=== PATIENT | male | born 1985 | race Caucasian/White ===

== ENCOUNTER 2022-04-08 19:03 | Emergency (ER) | payer SELFPAY | END 2022-04-08 21:10 | disposition home or self-care (01) | LOC: JD.ED 19:03 | DX: R07.89 Other chest pain (principal); K08.89 Other specified disorders of teeth and supporting structures; E78.00 Pure hypercholesterolemia, unspecified; I10 Essential (primary) hypertension; F17.210 Nicotine dependence, cigarettes, uncomplicated; E66.9 Obesity, unspecified; Z68.43 Body mass index [BMI] 50.0-59.9, adult; Z88.0 Allergy status to penicillin | CPT/HCPCS: 36415; 71045; 71045-26; 84484; 85025; 93005; 93010; 99284; 99285-25 ==

== ENCOUNTER 2022-12-27 21:31 | Emergency (ER) | payer OTHER ==
[2022-12-27] MEDS ORDERED: Levofloxacin 750 MG Tab PO ONE (22:10)
[2022-12-27] MEDS ORDERED: Acetaminophen/oxyCODONE 325-5 MG Tab PO ONE (22:11)
[2022-12-27] MEDS ORDERED: Dexamethasone 6 MG TABLET PO ONE (22:11)
[2022-12-27] MEDS ORDERED: Ibuprofen 800 MG Tab PO ONE (22:12)
== END 2022-12-27 22:42 | disposition home or self-care (01) ==
LOC: JD.ED 21:31
DX: N45.1 Epididymitis (principal); I10 Essential (primary) hypertension; E11.9 Type 2 diabetes mellitus without complications; E66.9 Obesity, unspecified; Z68.43 Body mass index [BMI] 50.0-59.9, adult; Z72.0 Tobacco use; Z88.0 Allergy status to penicillin; Z79.899 Other long term (current) drug therapy; Z79.84 Long term (current) use of oral hypoglycemic drugs
CPT/HCPCS: 99283; A9270; J8540

== ENCOUNTER 2024-09-21 21:03 | Observation (INO) | payer OTHER ==
[2024-09-21] MEDS ORDERED: Sodium Chloride 0.9% 10 ML Syringe FLUSH PRN (21:25)
[2024-09-21 21:30] LABS: BASOPHILS PERCENT AUTO 0.3 % (0.0-1.0); EOSINOPHILS ABSOLUTE AUTO 0.2 K/mm3 (0.0-0.4); EOSINOPHILS PERCENT AUTO 1.4 % (0.0-6.0); HEMOGLOBIN 17.4 gm/dl (14.0-18.0); IMMATURE GRAN ABSOLUTE AUTO 0.05 K/mm3 (0.00-0.05); IMMATURE GRAN PERCENT AUTO 0.4 % (0.0-0.4); LYMPHOCYTES ABSOLUTE AUTO 2.6 K/mm3 (1.0-4.8); LYMPHOCYTES PERCENT AUTO 20.8 % (24.0-44.0); MEAN CORPUSCULAR HEMOGLOBIN 29.7 pg (28.0-32.0); MEAN CORPUSCULAR HGB CONC 35.5 g/dl (32.0-36.0); MEAN CORPUSCULAR VOLUME 83.6 fl (83.0-99.0); MEAN PLATELET VOLUME 10.8 fl (9.4-12.4); MONOCYTES ABSOLUTE AUTO 1.2 K/mm3 (0.0-0.8); MONOCYTES PERCENT AUTO 9.7 % (0.0-8.0); NEUTROPHILS ABSOLUTE AUTO 8.5 K/mm3 (1.8-7.7); NEUTROPHILS PERCENT AUTO 67.4 % (41.0-71.0); PLATELET COUNT,PLT 191 K/mm3 (150-400); RED BLOOD CELL COUNT 5.86 M/mm3 (4.52-5.90); WHITE BLOOD CELL COUNT,WBC 12.52 K/mm3 (3.9-11.3)
[2024-09-21] MEDS: Iopamidol 612 MG/ML 100 ML Bottle IVPUSH ONE (21:48)
[2024-09-21 21:52] LABS: LACTIC ACID 1.1 mmol/L (0.4-2.0)
[2024-09-21 21:59] LABS: ALBUMIN 3.8 g/dl (3.4-5.0); BILIRUBIN TOTAL 0.5 mg/dL (0.2-1.0); BUN/CREATININE RATIO 11.3 (14-18); C-REACTIVE PROTEIN 1.98 mg/dL (<0.30); CREATININE 1.5 mg/dL (0.7-1.3); EST CRCL DRUG DOSING (CG) 81.17 mL/min; PROTEIN TOTAL,TP 7.7 g/dl (6.4-8.2)
[2024-09-21] MEDS: Sodium Chloride 0.9% 1,000 ML IV SCH (22:23)
[2024-09-21] MEDS: Potassium Chloride 20 MEQ Tab.ER PO ONE (22:38)
[2024-09-21] MEDS ORDERED: Morphine 2 MG/ML SYRINGE IVPUSH PRN (22:42)
[2024-09-21] MEDS ORDERED: Naloxone 0.4 MG/ML SDV IVPUSH PRN (22:42)
[2024-09-21] MEDS: Lactated Ringers 1,000 ML IV SCH (22:49)
[2024-09-21] MEDS: Levofloxacin/Dextrose 5%-Water 750 MG in Premix Bag 1 BAG IV ONE (22:57)
[2024-09-21] MEDS: metroNIDAZOLE/Normal Saline 500 MG in Premix Bag 1 BAG IV SCH (22:58)
[2024-09-21] MEDS: Ketorolac 30 MG/ML SDV IVPUSH SCH (23:16)
[2024-09-22] MEDS: Potassium Chloride 10 MEQ in Premix Bag 1 BAG IV SCH (00:05)
[2024-09-22 04:29] LABS: BASOPHILS ABSOLUTE AUTO 0.1 K/mm3 (0.0-0.2); BASOPHILS PERCENT AUTO 0.4 % (0.0-1.0); EOSINOPHILS ABSOLUTE AUTO 0.1 K/mm3 (0.0-0.4); EOSINOPHILS PERCENT AUTO 0.8 % (0.0-6.0); HEMATOCRIT 45.1 % (42.0-52.0); HEMOGLOBIN 15.8 gm/dl (14.0-18.0); IMMATURE GRAN ABSOLUTE AUTO 0.05 K/mm3 (0.00-0.05); IMMATURE GRAN PERCENT AUTO 0.4 % (0.0-0.4); LYMPHOCYTES ABSOLUTE AUTO 1.8 K/mm3 (1.0-4.8); LYMPHOCYTES PERCENT AUTO 14.2 % (24.0-44.0); MEAN CORPUSCULAR HEMOGLOBIN 29.2 pg (28.0-32.0); MEAN CORPUSCULAR VOLUME 83.4 fl (83.0-99.0); MEAN PLATELET VOLUME 10.9 fl (9.4-12.4); MONOCYTES ABSOLUTE AUTO 1.2 K/mm3 (0.0-0.8); MONOCYTES PERCENT AUTO 9.4 % (0.0-8.0); NEUTROPHILS ABSOLUTE AUTO 9.4 K/mm3 (1.8-7.7); NEUTROPHILS PERCENT AUTO 74.8 % (41.0-71.0); PLATELET COUNT,PLT 159 K/mm3 (150-400); RED BLOOD CELL COUNT 5.41 M/mm3 (4.52-5.90)
[2024-09-22 04:56] LABS: A/G RATIO 0.9 (1-2); ALBUMIN 3.2 g/dl (3.4-5.0); ANION GAP 13.6 (5-15); BILIRUBIN TOTAL 0.7 mg/dL (0.2-1.0); CALCIUM 8.3 mg/dL (8.5-10.1); CREATININE 1.2 mg/dL (0.7-1.3); EST CRCL DRUG DOSING (CG) 96.09 mL/min; POTASSIUM,K 3.6 mEq/L (3.5-5.1); PROTEIN TOTAL,TP 6.8 g/dl (6.4-8.2)
[2024-09-22] MEDS ORDERED: Propofol 200 MG/20 ML SDV ONE (08:24)
[2024-09-22] MEDS ORDERED: Rocuronium 50 MG/5 ML Vial ONE (08:25)
[2024-09-22] MEDS ORDERED: Lidocaine 2% 5 ML SDV ONE (08:25)
[2024-09-22] MEDS ORDERED: Ondansetron 4 MG/2 ML SDV ONE (08:25)
[2024-09-22] MEDS ORDERED: fentaNYL 250 MCG/5 ML SDV ONE (08:33)
[2024-09-22] MEDS ORDERED: Midazolam 1 MG/ML 2 ML SDV ONE (08:36)
[2024-09-22] MEDS ORDERED: HYDROmorphone 0.5 MG/0.5 ML Syringe ONE ×2 (08:58→09:09)
[2024-09-22] MEDS ORDERED: Lactated Ringers 1,000 ML ONE (09:00)
[2024-09-22] MEDS: Heparin Sodium 5,000 Units/ML Vial SUBCUT SCH (09:01)
[2024-09-22] MEDS ORDERED: Ketorolac 30 MG/ML SDV ONE (09:24)
[2024-09-22] MEDS ORDERED: Sugammadex Sodium 200 MG/2 ML VIAL IV ONE (09:24)
[2024-09-22] MEDS ORDERED: fentaNYL 100 MCG/2 ML SDV ONE (09:24)
[2024-09-22] MEDS ORDERED: Sodium Chloride 0.9% 10 ML Syringe FLUSH PRN (09:28)
[2024-09-22] MEDS ORDERED: HYDROmorphone 0.5 MG/0.5 ML Syringe IVPUSH PRN (10:38)
[2024-09-22] MEDS ORDERED: fentaNYL 100 MCG/2 ML SDV IVPUSH PRN (10:38)
[2024-09-22] MEDS ORDERED: Ondansetron 4 MG/2 ML SDV IVPUSH PRN (10:38)
[2024-09-22] MEDS: Lactated Ringers 1,000 ML IV SCH (14:47)
[2024-09-22] MEDS: Acetaminophen/Codeine 300-30 MG Tab PO PRN (15:04)
[2024-09-22] MEDS ORDERED: 50% Dextrose in Water 50 ML Syringe IVPUSH PRN (15:45)
[2024-09-22 17:41] LABS: HEMOGLOBIN A1C 5.7 %
[2024-09-22] MEDS: Insulin Lispro 100 Unit/ML 3 ML KwikPen SUBCUT SCH (19:26)
[2024-09-22] MEDS: amLODIPine 10 MG Tab PO SCH (21:27)
[2024-09-22] MEDS: atorvaSTATin 20 MG Tab PO SCH (21:27)
[2024-09-22] MEDS: Sodium Chloride 0.9% 10 ML Syringe FLUSH SCH (21:48)
[2024-09-22] MEDS: Levofloxacin/Dextrose 5%-Water 750 MG in Premix Bag 1 BAG IV SCH (23:04)
== END 2024-09-23 09:25 | disposition home or self-care (01) ==
LOC: JD.ED 21:03 → JD.MS 22:39
PROVIDERS: ADMIT Surgery; ATTEND Surgery
DX: K35.33 Acute appendicitis with perforation, localized peritonitis, and gangrene, with abscess (principal); I10 Essential (primary) hypertension; E11.9 Type 2 diabetes mellitus without complications; J45.909 Unspecified asthma, uncomplicated; E78.00 Pure hypercholesterolemia, unspecified; E66.01 Morbid (severe) obesity due to excess calories; F17.210 Nicotine dependence, cigarettes, uncomplicated; Z79.899 Other long term (current) drug therapy; Z88.0 Allergy status to penicillin
CPT/HCPCS: 36415; 44970; 74177; 80053; 82947; 83036; 83605; 83690; 85025; 86140; A9270; J1171; J1644; J1836; J1885; J1956; J2250; J2405; J2704; J3010; J3480; J3490; J7030; J7120; Q9967; 00840; 96365; 96366; 96368; 96375; 99140; 99204; 99285; 99285-25